=== PATIENT | female | born 1995 | race Two or more races ===

== ENCOUNTER 2018-07-28 09:13 | Emergency (ER) | payer SELFPAY ==
[~2018-07-28] VITALS: Ht 175.3 cm; Wt 114.0 kg
[2018-07-28 09:22] VITALS: BP 135/85
[2018-07-28] MEDS ORDERED: DEXAMETHASONE 4 MG/ML, 1ML PO ONE (09:30)
[2018-07-28] MEDS ORDERED: DEXAMETHASONE 4 MG/ML, 5ML ONE (09:48)
== END 2018-07-28 11:04 | disposition home or self-care (01) ==
LOC: ED 10:53
DX: J02.0 Streptococcal pharyngitis (principal)
CPT/HCPCS: 87880; 99283; J1100

== ENCOUNTER 2020-04-14 17:52 | Emergency (ER) | payer MEDICAID ==
[~2020-04-14] VITALS: Ht 175.3 cm; Wt 120.7 kg
[2020-04-14 21:53] VITALS: BP 149/88
== END 2020-04-14 21:55 | disposition home or self-care (01) ==
LOC: ED 21:45
DX: S93.492A Sprain of other ligament of left ankle, initial encounter (principal); X58.XXXA Exposure to other specified factors, initial encounter; Y93.89 Activity, other specified; Y92.89 Other specified places as the place of occurrence of the external cause; Y99.8 Other external cause status
CPT/HCPCS: 99283

== ENCOUNTER 2020-06-05 11:42 | Emergency (ER) | payer MEDICAID ==
[~2020-06-05] VITALS: Ht 175.3 cm; Wt 123.0 kg
--- NOTE | 2020-06-05 12:25 | NUR ---
PT GOING TO RADIOLOGY AT THIS TIME.
[2020-06-05] MEDS ORDERED: MAALOX/HYOSCYAMINE/LIDOCAINE 45 ML BTL ONE (12:26)
[2020-06-05] MEDS ORDERED: FAMOTIDINE 20 MG TABLET ONE (12:26)
[2020-06-05] MEDS ORDERED: MAALOX/HYOSCYAMINE/LIDOCAINE 45 ML BTL PO ONE (12:30)
[2020-06-05] MEDS ORDERED: FAMOTIDINE 20 MG TABLET PO ONE (12:30)
[2020-06-05 12:38] LABS: BASOPHILS % (AUTO) 1 % (0-1); EOSINOPHILS % (AUTO) 4 % (1-7); INTERNATIONAL NORMALIZED RATIO 0.93 (0.93-1.1); LYMPHOCYTES % (AUTO) 33 % (22-44); MEAN CORPUSCULAR HEMOGLOBIN 31.1 pg (27.0-34.8); MEAN CORPUSCULAR HGB CONC 34.5 g/dL (32.4-35.8); MEAN PLATELET VOLUME 6.9 fL (7.4-10.4); MONOCYTES % (AUTO) 6 % (2-9); NEUTROPHILS % (AUTO) 57 % (42-75); PLATELET COUNT 381 x10^3/uL (130-400); PROTHROMBIN TIME 9.9 Seconds (9.6-11.5); RED BLOOD COUNT 4.61 x10^6/uL (3.82-5.3); RED CELL DISTRIBUTION WIDTH 13.1 % (9.6-15.2)
[2020-06-05 12:40] LABS: MD NO
[2020-06-05 12:44] LABS: ALANINE AMINOTRANSFERASE 43 U/L (12-78); ANION GAP 6 mmol/L (5-15); CALCIUM 8.9 mg/dL (8.5-10.1); CHLORIDE 106 mmol/L (98-107); CREATININE 0.76 mg/dL (0.55-1.02)
[2020-06-05 12:45] LABS: ALKALINE PHOSPHATASE 53 U/L (45-117); BILIRUBIN,TOTAL 0.4 mg/dL (0.2-1.0); TOTAL PROTEIN 8.5 g/dL (6.4-8.2)
[2020-06-05 13:55] VITALS: BP 145/78
== END 2020-06-05 13:57 | disposition home or self-care (01) ==
LOC: ED 12:25
DX: R11.2 Nausea with vomiting, unspecified (principal); R10.32 Left lower quadrant pain
CPT/HCPCS: 36415; 74022; 80053; 83690; 85025; 85610; 99284